=== PATIENT | female | born 1990 | race Caucasian/White ===

== ENCOUNTER 2024-10-25 17:59 | Inpatient (IN) | payer MEDICAID, OTHER ==
[~2024-10-25] VITALS: Ht 167.6 cm; Wt 70.4 kg
--- NOTE | 2024-10-25 18:31 | ED.PDOC ---
Altered Mental Status HPI Comments 34y F who presents to the ED via EMS for chief complaint of ALOC. Per EMS, pt brought from home after pt roommates states pt was in pain and told roommates, pt was having possible contractions due to . Upon EMS arrival, pt states she is not and EMS states pt is ax0x2. Pt states she has " pain down there" and denies any associated bleeding or any associated discharge or any associated symptoms. Pt in no noted distress at this time. Pt otherwise has noted distended abdomen. Pt otherwise denies any other symptoms at this time. Chief Complaint: ALOC Time Seen by MD: 18:28 Primary Care Provider: UNABLE TO OBTAIN Reviewed Notes: Nurses Notes, Coin Machine Collector Notes, Medications Allergies: Coded Allergies: UNOBTAINABLE (Unverified , 10/25/24) Information Source: Patient, Emergency Med Personnel Mode of Arrival: EMS Brought in by: EMS Severity: Moderate Timing: Hours Duration: Since onset Prehospital treatment: None Quality: None Recent: None History of: None Associated Signs and Symptoms: None Past Medical History PAST MEDICAL HISTORY: Unknown Surgical History: Unknown PRESS BRAKE OPERATOR History: Unknown Family History Family History: Unknown Social History Smoker: Non-Smoker Alcohol: Denies ETOH Use Drugs: Denies Drug Use Lives In: Home Constitutional: denies: chills, diaphoresis, fatigue, fever, malaise, sweats, weakness, others EENTM: denies: blurred vision, double vision, ear bleeding, ear discharge, ear drainage, ear pain, ear ringing, eye pain, eye redness, hearing loss, mouth pain, mouth swelling, nasal discharge, nose bleeding, nose congestion, nose pain, photophobia, tearing, throat pain, throat swelling, voice changes, others Respiratory: denies: cough, hemoptysis, orthopnea, SOB at rest, shortness of breath, SOB with excertion, stridor, wheezing, others Cardiovascular: denies: chest pain, dizzy spells, diaphoresis, Dyspnea on exertion, edema, irregular heart beat, left arm pain, lightheadedness, palpitations, PND, syncope, others Gastrointestinal: reports: abdominal pain; denies: abdomen distended, blood streaked bowels, constipated, diarrhea, dysphagia, difficulty swallowing, hematemesis, melena, nausea, poor appetite, poor fluid intake, rectal bleeding, rectal pain, vomiting, others Genitourinary: denies: abnormal vagina bleeding, burning, dyspareunia, dysuria, flank pain, frequency, hematuria, incontinence, pain, , vagina discharge, urgency, others Neurological: denies: dizziness, fainting, headache, left sided numbness, left sided weakness, numbness, paresthesia, pre-existing deficit, right sided numbness, right sided weakness, seizure, speech problems, tingling, tremors, weakness, others Musculoskeletal: denies: back pain, gout, joint pain, joint swelling, muscle pain, muscle stiffness, neck pain, others Integumetry: denies: bruises, change in color, change in hair/nails, dryness, laceration, lesions, lumps, rash, wounds, others Allergic/Immunocompromised: denies: Difficulty Healing, Frequent Infections, Hives, Itching, others Hematologic/Lymphatic: denies: anemia, blood clots, easy bleeding, easy bruising, swollen glands, others Endocrine: denies: excessive hunger, excessive sweating, excessive thirst, excessive urination, flushing, intolerance to cold, intolerance to heat, unexplained weight gain, unexplained weight loss, others Psychiatric: denies: anxiety, bipolar disorder, depression, hopeless, panic disorder, schizophrenia, sleepless, suicidal, others Unable to Obtain due to: Altered Mental Status All Other Systems: Reviewed and Negative Physical Exam General Appearance: Mild Distress HEENT: Normal ENT Inspection, Pharynx Normal, TMs Normal Neck: Full Range of Motion, Non-Tender, Normal, Normal Inspection Respiratory: Chest Non-Tender, Lungs Clear, No Accessory Muscle Use, No Resp iratory Distress, Normal Breath Sounds Cardiovascular: No Edema, No JVD, No Murmur, No Gallop, Normal Peripheral Pulses, Regular Rate/Rhythm Breast Exam: Deferred Gastrointestinal: Distended, Non Tender, No Pulsatile Mass, Normal Bowel Sounds, Soft Genitalia: Deferred Pelvic: Deferred Rectal: Deferred Extremities: No calf tenderness, Normal capillary refill, Normal inspection, Normal range of motion, Non-tender, No pedal edema Musculoskeletal : Apperance: Normal Neurologic: Alert, jumbo operator II-XII nml as Tested, No Motor Deficits, Normal Affect, Normal Mood, No Sensory Deficits Cerebellar Function: Normal Reflexes: Normal Skin: Dry, Normal Color, Warm Lymphatic: No Adenopathy Was a procedure done? Was a procedure done?: No Differential Diagnosis (ALOC) Differential Diagnosis: Dehydration, Hypoglycemia, Encephalopathy, Sepsis Other Differential Diagnosis drug use. X-Ray, Labs, Meds, VS Vital Signs Date Time Temp Pulse Resp B/P (MAP) Pulse Ox O2 Delivery O2 Flow Rate FiO2 10/25/24 18:32 88 18 99 Room Air* 0 21 10/25/24 18:31 98.1 87 18 152/93 (112) 99 98.1 10/25/24 18:15 98.6 107 20 166/93 (117) 98 Lab Test 10/25/24 18:10 10/25/24 18:02 Range/Units White Blood Count 9.2 4.4-10.8 10^3/uL Red Blood Count 4.31 4.0-5.20 10^6/uL Hemoglobin 11.1 L 12.2-16.2 g/dL Hematocrit 34.4 L 36.0-46.0 % Mean Corpuscular Volume 79.9 L 80.0-100.0 fL Mean Corpuscular Hemoglobin 25.8 L 28.0-32.0 pg Mean Corpuscular Hemoglobin Concent 32.3 32.0-36.0 g/dL Red Cell Distribution Width 15.9 H 11.8-14.3 % Platelet Count 148 140-450 10^3/uL Mean Platelet Volume 9.2 6.9-10.8 fL Neutrophils (%) (Auto) 70.5 37.0-80.0 % Lymphocytes (%) (Auto) 21.8 10.0-50.0 % Monocytes (%) (Auto) 6.9 0.0-12.0 % Eosinophils (%) (Auto) 0.4 0.0-7.0 % Basophils (%) (Auto) 0.4 0.0-2.0 % Neutrophils # (Auto) 6.5 1.6-8.6 10 ^3/uL Lymphocytes # (Auto) 2.0 0.4-5.4 10 ^3/uL Monocytes # (Auto) 0.6 0-1.3 10 ^3/uL Eosinophils # (Auto) 0 0-0.8 10 ^3/uL Basophils # (Auto) 0 0-0.2 10 ^3/uL Nucleated Red Blood Cells 0.1 % Sodium Level 137 136-145 mmol/L Potassium Level 4.3 3.5-5.1 mmol/L Chloride Level 109 H 98-107 mmol/L Carbon Dioxide Level 22 20-31 mmol/L Anion Gap 6 5-15 Blood Urea Nitrogen 9 9-23 mg/dL Creatinine 0.50 L 0.550-1.02 mg/dL Glomerular Filtration Rate Calc 125 >90 mL/min BUN/Creatinine Ratio 18.0 10.0-20.0 Serum Glucose 81 74-106 mg/dL Calcium Level 9.4 8.7-10.4 mg/dL Total Bilirubin 0.2 0.2-1.0 mg/dL Aspartate Amino Transferase (AST) 22 13-40 U/L Alanine Aminotransferase (ALT) < 9 7-40 U/L Alkaline Phosphatase 190 H 46-116 U/L Total Protein 6.4 5.7-8.2 g/dL Albumin 3.7 3.2-4.8 g/dL Plasma/Serum Blood Alcohol 4.8 <10 mg/dL Urine Color Colorless Yellow Urine Clarity Clear Clear Urine pH 6.5 5.0-9.0 Urine Specific Dyke 1.008 1.001-1.035 Urine Protein Negative Negative Urine Ketones Negative Negative Urine Blood Trace H Negative /uL Urine Nitrite Negative Negative Urine Bilirubin Negative Negative Urine Urobilinogen Normal Negative mg/dL Urine Leukocyte Esterase 1+ Negative /uL Urine RBC 1 0 - 4 /hpf Urine WBC 7 0 - 5 /hpf Urine Squamous Epithelial Cells Few <5 /hpf Urine Bacteria None seen None Seen /hpf Urine Glucose Normal Normal mg/dL Urine Test Positive Negative Pelvic ultrasound was done in the patient was approximately 33 weeks and three days The cervix is fairly wide open. The urine test is positive for what seems to be UTI The urine test is positive The CBC and chemistry panel are within normal limits except for mild anemia The patient was being sent over to labor and delivery at this time We did contact them and they are expecting the patient The patient was discharged from the emergency department's Images Reviewed?: Images reviewed and evaluated by me Time of 1ST Reevaluation: 19:00 Reevaluation 1ST: Unchanged Patient Education/Counseling: Other (pt is altered, ax0x2) Family Education/Counseling: No Family Present Additional Information - I reviewed the following notes from patient's past medical encounters: - The following tests were ordered, and results were reviewed by me: (Labs, X- Ray, EKG): cbc, cmp, ua, blood alcohol, OB US - Additional information was gathered from interviewing the following independent Historian: (Family, Other Providers, EMT): ems - I reviewed and agreed with the following test results read by other provider: (X-ray, CT, US): radiologist - I discussed treatments and results with medical personnel and: (consultants, family): none Departure 1 Departure Time of Disposition: 19:18 Impression: Primary Impression: Abdominal pain during Qualified Codes: O26.899 - Other specified related conditions, unspecified trimester; R10.9 - Unspecified abdominal pain Disposition: 01 HOME / SELF CARE / HOMELESS Condition: Fair Discharged With: Self Critical Care Note Critical Care Time?: No Stability Stability form required: No Heart Score Heart Score: Heart Score Response (Comments) Value History N/A 0 EKG N/A 0 Age N/A 0 Risk Factors N/A 0 Troponin N/A 0 Total 0 I personally scribed for CARTER TOTH MD ([email or web address]) on 10/25/24 at 18:31. Electronically submitted by Micheal Paris ([email or web address]). CARTER TOTH MD Oct 25, 2024 18:31
[2024-10-25 18:32] VITALS: PULSE 88; RESP 18; O2SAT 99
[2024-10-25 18:38] LABS: Basophils # (auto) 0 10 ^3/uL (0-0.2); Basophils % (auto) 0.4 % (0.0-2.0); Eosinophils # (auto) 0 10 ^3/uL (0-0.8); Eosinophils % (auto) 0.4 % (0.0-7.0); Hematocrit 34.4 % (36.0-46.0); Hemoglobin 11.1 g/dL (12.2-16.2); Lymphocytes % (auto) 21.8 % (10.0-50.0); Mean Corpuscular Hemoglobin 25.8 pg (28.0-32.0); Mean Corpuscular Hgb Conc. 32.3 g/dL (32.0-36.0); Mean Corpuscular Volume 79.9 fL (80.0-100.0); Monocytes # (auto) 0.6 10 ^3/uL (0-1.3); Monocytes % (auto) 6.9 % (0.0-12.0); Neutrophils # (auto) 6.5 10 ^3/uL (1.6-8.6); Neutrophils % (auto) 70.5 % (37.0-80.0); Nucleated Red Blood Cells % 0.1 %; Platelet Count (auto) 148 10^3/uL (140-450); Red Blood Cells 4.31 10^6/uL (4.0-5.20); Red Cell Distribution Width 15.9 % (11.8-14.3); White Blood Cell 9.2 10^3/uL (4.4-10.8)
[2024-10-25 18:50] LABS: Urine Bacteria None Seen /hpf (None Seen)
[2024-10-25 18:52] LABS: Albumin 3.7 g/dL (3.2-4.8); Anion Gap 6 (5-15); Aspartate Aminotransferase 22 U/L (13-40); Calcium 9.4 mg/dL (8.7-10.4); Carbon Dioxide 22 mmol/L (20-31); Glucose 81 mg/dL (74-106); Potassium 4.3 mmol/L (3.5-5.1); Sodium 137 mmol/L (136-145); Total Protein 6.4 g/dL (5.7-8.2)
[2024-10-25 18:53] LABS: Alanine Aminotransferase < 9 U/L (7-40); Alkaline Phosphatase 190 U/L (46-116); Bilirubin, Total 0.2 mg/dL (0.2-1.0); Blood Urea Nitrogen 9 mg/dL (9-23); Chloride 109 mmol/L (98-107)
[2024-10-25 19:00] LABS: Urine Blood TRACE /uL (Negative); Urine Clarity Clear (Clear); Urine Color Colorless (Yellow); Urine Protein, UAD Negative (Negative); Urine Specific Gravity 1.008 (1.001-1.035); Urine Squamous Epithelial Cell FEW /hpf (<5); Urine Urobilinogen Normal (Negative); Urine WBC 7 /hpf (0 - 5); Urine pH 6.5 (5.0-9.0)
--- NOTE | 2024-10-25 19:37 | DVH ---
EXAM: US OB ULTRASOUND COMP GTR 14 WKS HISTORY: DETERMINE GESTATIONAL AGE TECHNIQUE: Multiple real-time grayscale images of the gravid uterus with duplex Doppler color flow an d M-mode spectral analysis. COMPARISON: None FINDINGS: IUP single live fetus at 33 weeks, 3 days average ultrasound age (AUA) based on composite averages of the BPD, head circumference, abdominal circumference and femur length MEASUREMENTS: BPD: 8.8 cm GA: 35 w 5 d HC: 29.8 cm GA: 33 w 1 d AC: 28.1 cm GA: 33 w 2 d FL: 6.4 cm GA: 33 w 1 d Estimated weight 2056 grams heart rate 123 beats per minute JUSTINE 27.1 cm ANATOMIC SURVEY: Cephalic Presentation Posterior placenta without previa or abruption Cervix is open IMPRESSION: 1. IUP single live fetus at 33 weeks, 3 days AUA corresponding to an JESÚS of December 10, 2024. 2. No placenta previa or abruption. 3. Cervix appears to be open
[2024-10-25] MEDS ORDERED: LIDOCAINE 2%HCL (LOCAL ANESTH.) INJ 20ML MDV IJ PRN (19:45)
[2024-10-25] MEDS ORDERED: WITCH HAZEL-GLYCERIN PAD TOP PRN (19:45)
[2024-10-25] MEDS ORDERED: PHISODERM TOP SOLN 240ML BTL TOP PRN (19:45)
[2024-10-25] MEDS ORDERED: DERMOPLAST 60ML BOTTLE TOP PRN (19:45)
[2024-10-25] MEDS ORDERED: LACTATED RINGER'S 1,000 ML IV SCH ×2 (19:45→20:00)
[2024-10-25] MEDS ORDERED: LACT. RINGERS/OXYTOCIN 20UNITS 1,000 ML IV SCH (20:00)
[2024-10-25] MEDS ORDERED: BETAMETHASONE ACET (30mg/5ml) 5ml Vial 6mg/ml IM ONE (20:00)
[2024-10-25] MEDS ORDERED: BETAMETHASONE ACET (30mg/5ml) 5ml Vial 6mg/ml ONE (20:03)
[2024-10-25] MEDS: PENICILLIN G POT 5MIL/D5 50ML 50 ML IV ONE (20:14)
[2024-10-25 20:18] LABS: INR 0.91 (0.9-1.15); Partial Thromboplastin Time 24.7 SEC (24.5-34.5); Prothrombin Time 9.7 sec (9.3-11.8)
[2024-10-25] MEDS ORDERED: hydrALAZINE HCL 20 MG/ML VL ONE (20:30)
[2024-10-25] MEDS ORDERED: MAGNESIUM SULFATE 100 ML IV ONE (20:39)
[2024-10-25] MEDS ORDERED: LORazepam 2MG/ML-1ML VIAL IV PRN (20:45)
[2024-10-25 20:49] LABS: Albumin 3.8 g/dL (3.2-4.8); Anion Gap 8 (5-15); Aspartate Aminotransferase 14 U/L (13-40); BUN/Creatinine Ratio 17.9 (10.0-20.0); Blood Urea Nitrogen 10 mg/dL (9-23); Calcium 9.4 mg/dL (8.7-10.4); Carbon Dioxide 24 mmol/L (20-31); Glucose 81 mg/dL (74-106); Sodium 139 mmol/L (136-145); Total Protein 6.4 g/dL (5.7-8.2)
[2024-10-25] MEDS: MAGNESIUM SULFATE 100 ML IV ONE (21:08)
[2024-10-25 21:14] LABS: Alanine Aminotransferase < 9 U/L (7-40); Alkaline Phosphatase 191 U/L (46-116); Bilirubin, Total 0.2 mg/dL (0.2-1.0); Chloride 107 mmol/L (98-107)
[2024-10-25 21:15] LABS: Amphetamine Screen, Urine Neg (NEGATIVE); Barbiturate Scree,Urine Neg (NEGATIVE); Benzodiazephine Screen, Urine Neg (NEGATIVE); Cannabinoid Screen, Urine Neg (NEGATIVE); Cocaine Screen, Urine Pos (NEGATIVE); Opiate Scree,Urine Neg (NEGATIVE); Phencyclidine Screen, Urine Neg (NEGATIVE)
[2024-10-25] MEDS: MAGNESIUM SULFATE 40MG/ML 1,000 ML IV SCH (21:34)
[2024-10-25 22:21] LABS: Protein, Urine 12.6 mg/dL (1-14)
[2024-10-25 22:24] LABS: Creatinine, Urine 24.5 mg/dL (30.0-125.0); Urine Protein/Creatinine Ratio 0.51
--- NOTE | 2024-10-25 23:13 | DVHHP2 ---
OB CC & HPI Date Date of Admission: Oct 25, 2024 Patient Identification: : 2 Para: 1 EDC: Dec 10, 2024 EGA: 33WKS Chief Complaints: Reason for admission: active labor Admission Nurse Assessment Rev: No History of Present Complaints PT IS ADMITTED FROM ER WITH ACTIVE LABOR,PT HAS SCHIZOPHRENIA,NO CARE AND POS FOR COCAINE AND ETOH.PT HAS ALOC AND VERY UNCOOPERATIVE Past Medical History Cardiac: No pertinent Hx Pulmonary: No pertinent Hx Central Nervous System: No pertinent Hx GI: No pertinent Hx Hemotology/Oncology: No pertinent Hx Hepatobiliary: No pertinent Hx Psychiatric: No pertinent Hx Musculoskeletal: No pertinent Hx Rheumotologic: No pertinent Hx Infectious Disease: No peritnent Hx ENT: No pertinent Hx Renal/: No pertinent Hx Endocrine: No pertinent Hx Dermatology: No pertinent Hx Past Surgical History: No pertinent Hx OB History OB History Care: None Ultrasounds: No ultrasounds Obstetrical Complications: None Medical Complications: None Allergies: Coded Allergies: UNOBTAINABLE (Unverified , 10/25/24) Current Medications Current Medications Medications (Trade) Dose Ordered Sig/Jaskaran Route PRN Reason Start Time Stop Time Status Last Admin Lactated Ringer's 1,000 ml @ 125 mls/hr Q8H IV 10/25/24 19:45 10/25/24 20:41 DC Penicillin G Potassium [id number] units/Dextrose 50 ml @ 100 mls/hr Q4H IV 10/25/24 23:45 Witch Jenny (Tucks) 1 pad PRN PRN TOP PERINEAL AREA DISCOMFORT 10/25/24 19:45 Sodium Lauryl Sulfate (Phisoderm) 240 ml PRN PRN TOP PERINEAL AREA DISCOMFORT 10/25/24 19:45 Benzocaine (Dermoplast) 1 applic PRN PRN TOP PERINEAL AREA DISCOMFORT 10/25/24 19:45 Lidocaine HCl (Xylocaine) 40 ml ONCE PRN IJ PERINEAL AREA DISCOMFORT 10/25/24 19:45 Lactated Ringer's 1,000 ml @ 125 mls/hr Q8H IV 10/25/24 20:00 Oxytocin 1,000 ml @ 6 ml/hr Q24H IV 10/25/24 20:00 Hydralazine HCl (Apresoline Injection) 5 mg Q20MP PRN IV SBP>160 or DBP>95 10/25/24 20:00 Magnesium Sulfate 1,000 ml @ 50 mls/hr Q20H IV 10/25/24 20:45 10/25/24 21:34 Lorazepam (Ativan Inj) 4 mg ONCE PRN IV ANXIETY 10/25/24 20:45 Family & Social History Family/Social History Blood Type: Unknown Rubella: unknown RPR/VDRL: Unknown GBS Status: Unknown HBsAG: Unknown Review of Systems Constitutional: No symptom reported Ears, Nose, & Throat: No symptom reported Eyes: No symptom reported Pulmonary/Respiratory: No symptom reported Cardiovascular: No symptom reported Gastrointestinal: No symptom reported Genitourinary: No symptom reported Musculoskeletal: No symptom reported Skin: No symptom reported Psychiatric: No symptom reported Endocrine: No symptom reported Hemotologic/Lymphatic: No symptom reported OB Admission Exam Physical Exam Vitals: Vital Signs Date Time Temp Pulse Resp B/P (MAP) Pulse Ox O2 Delivery O2 Flow Rate FiO2 10/25/24 18:32 88 18 99 Room Air* 0 21 10/25/24 18:31 98.1 152/93 (112) 98.1 HEENT: TMs Normal, Fontanelles Normal, Nasal Mucosa Normal, Eyes non-injected, Oropharynx Normal, PERRLA, Moist Membranes, EOMI Heart: Rhythm Normal Lungs: Clear Abdomen: Non tender Extremities: Normal Reflexes: Normal Cervical Dilatation: 10cm Effacement: 100% Station: +3 Membranes: Intact Heart Rate: 130's Accelerations: Accelerations Present Decelerations: No Decelerations Short Term Variability: Present Flower Cheniller Variability: Average (6-25) Contractions on Admission: < 5 Minutes Apart Intensity: Moderate OB Plan Plan Admitting Diagnosis: ACTIVE Labor,IUP AT 33WK NO care,ama,drug use alcohol and cocaine ama,schizophrenia,aloc Plan: Expectant Management Other Plan: pt informed of all process aND CONSENTED TO [facility] OUR [facility] KATIE ROLDAN DO Oct 25, 2024 23:13
--- NOTE | 2024-10-25 23:15 | LDN2 ---
Labor and Delivery Note Date 10/25/24 Age 34 2 Para 2 EDC 3-3 EGA 33 WKS Diagnosis ACTIVE LABOR,ALOC,SCHIZOPHRENIA,AMA,ETOH USE AND DRUG USE,NO CARE Vaginal Delivery: VTX Vacuum Assisted: No Placenta: Spontaneous Sex: Female Apgars 8-9 Nuchal Cord Transected: Yes Amniotic Fluid: Thin Anesthesia NA Episiotomy: No Extension: No EBL 300ML Labs Laboratory Tests 10/25/24 20:08: Hepatitis B Surface Antigen Negative, HIV (1&2) Antibody Negative Complications NONE Conditions STABLE Comments/Significant Med [place] SPEC EXAM NO CXAL LAC KATIE ROLDAN DO Oct 25, 2024 23:15
[2024-10-25] MEDS ORDERED: PENICILLIN G POTASSIUM 2,500,000 UNITS in D5W 5% 50 ML IV SCH (23:45)
[2024-10-26] MEDS: hydrALAZINE HCL 20 MG/ML VL IV PRN (00:01)
[2024-10-26] MEDS: LACT. RINGERS/OXYTOCIN 20UNITS 500 ML IV ONE ×2 (00:15→04:37)
[2024-10-26 03:00] VITALS: BP 119/61; PULSE 107; RESP 24; TEMP 98.7; O2SAT 95
[2024-10-26] MEDS ORDERED: ACETAMINOPHEN 325 MG TAB PO PRN (04:15)
[2024-10-26] MEDS ORDERED: ONDANSETRON ODT 4 MG TAB PO PRN (04:15)
[2024-10-26] MEDS: IBUPROFEN 600 MG TAB PO PRN (07:01)
[2024-10-26 07:06] LABS: RPR Non Reactive (Non Reactive)
[2024-10-26 07:30] VITALS: BP 107/64; PULSE 82; RESP 18; TEMP 98.3; O2SAT 98; O2SAT 99
--- NOTE | 2024-10-26 07:34 | DVHPN2 ---
Chief Complaints Patient reports: No new complaints Nursing reports: No new complaints Objective Vitals Vital Signs Date Time Temp Pulse Resp B/P (MAP) Pulse Ox O2 Delivery O2 Flow Rate FiO2 10/26/24 03:15 Room Air 10/26/24 03:00 98.7 107 24 119/61 (80) 95 98.7 10/25/24 18:32 0 21 Medications Current Medications Medications (Trade) Dose Ordered Sig/Jaskaran Route PRN Reason Start Time Stop Time Status Last Admin Acetaminophen (Tylenol Tablet) 650 mg Q4HP PRN PO MILD PAIN (1-3 PAIN SCALE) 10/26/24 04:15 Benzocaine (Dermoplast) 1 applic PRN PRN TOP PERINEAL AREA DISCOMFORT 10/25/24 19:45 Hydralazine HCl (Apresoline Injection) 5 mg Q20MP PRN IV SBP>160 or DBP>95 10/25/24 20:00 10/26/24 00:10 Ibuprofen (Motrin Tablet) 600 mg Q6HP PRN PO MODERATE PAIN (4-6 PAIN SCALE) 10/26/24 04:15 10/26/24 07:01 Lactated Ringer's 1,000 ml @ 125 mls/hr Q8H IV 10/25/24 20:00 Lidocaine HCl (Xylocaine) 40 ml ONCE PRN IJ PERINEAL AREA DISCOMFORT 10/25/24 19:45 Lorazepam (Ativan Inj) 4 mg ONCE PRN IV ANXIETY 10/25/24 20:45 Magnesium Sulfate 1,000 ml @ 50 mls/hr Q20H IV 10/25/24 20:45 10/25/24 21:34 Ondansetron HCl (Zofran Po) 4 mg Q4HPRN PRN PO NAUSEA / VOMITING 10/26/24 04:15 Oxytocin 1,000 ml @ 6 ml/hr Q24H IV 10/25/24 20:00 Penicillin G Potassium [id number] units/Dextrose 50 ml @ 100 mls/hr Q4H IV 10/25/24 23:45 Sodium Lauryl Sulfate (Phisoderm) 240 ml PRN PRN TOP PERINEAL AREA DISCOMFORT 10/25/24 19:45 Witch Jenny (Tucks) 1 pad PRN PRN TOP PERINEAL AREA DISCOMFORT 10/25/24 19:45 General: Normal Lungs: Normal Cardiovascular: Normal Abdominal: Soft Extremities: Normal Studies Laboratory Tests 10/25/24 20:08 10/25/24 18:10 Test 10/25/24 20:08 Range/Units Serum Glucose 81 74-106 mg/dL Ass/Plan Assessment s/p Plan social service consult KATIE ROLDAN DO Oct 26, 2024 07:34
[2024-10-26 08:06] LABS: Rubella Antibodies, IgG 1.54 index (Immune >0.99)
--- NOTE | 2024-10-27 07:23 | DVHDS2 ---
Obstetrics Discharge Summary Obstetrics Discharge Summary Date of Admission: Oct 25, 2024 Date of Discharge: Oct 27, 2024 Reason For Admission: Onset of Labor Procedures: NST Intrapartum Procedures: Spontaneous vaginal deliv Procedures: None Operative Complicat: None Discharge Diagnosis: Delivery Discharge Information: Activity (Other), Diet (Other), Medications (None), Instructions (Other), Discharge to (Other), Discarge date (LEFT AMA) KATIE ROLDAN DO Oct 27, 2024 07:23
[2024-10-29 12:06] LABS: Treponema Pallidum Ab LC Non Reactive (Non Reactive)
== END 2024-10-26 11:41 | disposition left against medical advice (07) | DRG 560 ==
LOC: EDBD 17:59 → ER 18:04 → LDRP 19:42
PROVIDERS: ADMIT Obstetrics & Gynecology; ATTEND Obstetrics & Gynecology
PROC: 10E0XZZ Delivery of Products of Conception, External Approach (ICD-10-PCS; principal; 2024-10-25)
DX: O60.14X0 Preterm labor third trimester with preterm delivery third trimester, not applicable or unspecified (principal); Z37.0 Single live birth; O99.344 Other mental disorders complicating childbirth; F20.9 Schizophrenia, unspecified; O69.81X0 Labor and delivery complicated by cord around neck, without compression, not applicable or unspecified; O77.0 Labor and delivery complicated by meconium in amniotic fluid; Z53.29 Procedure and treatment not carried out because of patient's decision for other reasons; Z3A.33 33 weeks gestation of pregnancy
CPT/HCPCS: 36415; 59025; 59409; 76805; 80053; 80307; 80320; 81001; 81025; 82570; 83735; 84156; 84550; 85025; 85610; 85730; 86592; 86703; 86762; 86780; 86803; 86850; 86900; 86901; 87340; 94760; 96360; 96361; 96366; 96374; 96375; G0378; J2540; J7060